=== PATIENT | female | born 1985 | race Caucasian/White ===

== ENCOUNTER → 2016-10-24 | Outpatient (CLI) | payer OTHER ==
--- NOTE | 2016-10-24 13:01 | US ---
October 24, [address] Lazaro, Thank you very much for allowing us to see your patient, Torey Noonan. As you know, she is a a 31 year-old, 2, para 1001 with a twin suspected to be dichorionic diamniotic who is here for viability and chorionicity evaluation. The is at 9w3d by LMP of 08/19/16; DELON of 05/26/17. She is a healthy woman without chronic medical problems. She has had one term that delivered vaginally without complications. ULTRASOUND LMP: 08/19/17 Gestational age by LMP: 9 weeks 3 days DELON by LMP: 05/26/17 Number of fetuses: 2 Chorionicity: Dichorionic; twin peak sign is clearly seen and the placenta for each twin is separate Amnion: Diamniotic TWIN A: Inferior CRL: 26 mm Gestational age by CRL: 9 weeks 3 day(s) Nuchal Translucency: Not applicable heart rate: 172 bpm Placenta: Posterior Yolk Sac: Present, 6.6 mm TWIN B: Superior CRL: 27 mm Gestational age by CRL: 9 weeks 4 day(s) Nuchal Translucency: Not applicable heart rate: 176 bpm Placenta: Anterior Yolk Sac: Present, 6.8 mm There is a hypoechoic area adjacent to the gestational sac for each twin which may represent a subcho rionic hematoma. Right Ovary: Is seen with a simple cyst which may be her corpus luteum. The ovary measures 5.8 x 4. 3 x 3.2 cm. The cyst measures 4.1 x 3.3 x 2.7 cm. Left ovary: Is seen with a cyst which may also be a corpus luteum. The ovary measures 3.6 x 3.3 x 1.7 cm the cyst measures 2.0 x 1.7 x 1.3 cm. IMPRESSION: 1. Dichorionic diamniotic twin dating 9 weeks 3 day(s); DELON of 05/26/17. Today's ultrasou nd is consistent with established dating. 2. Twin A has an anterior placenta 3. Twin B has a posterior placenta 4. Both the right and left ovaries have cysts which may be corpus luteum versus simple cysts RECOMMENDATIONS I had the opportunity to review today's ultrasound with your couple. Today's ultrasound confirms the viability of the twins and that they are dichorionic diamniotic twins. We reviewed the different ty pe of twin pregnancies that can occur. We discussed the average gestational age of twins in the [place] i s 35 weeks. Twins can be more complicated than teague pregnancies and certain maternal and perina gilbert risks are increased with twins. risks include but are not limited to miscarriage/still , genetic related complications for one of both babies, structure related/ defects for one or both babies, growth related concerns, labor/PPROM with the inherent risk of prematurity, o perative delivery, increased bleeding, infection and VTE risks. Surveillance is increased in twin pregnancies. Maternal risks include but are not limited to hypertensive disorders of pregna ncy and gestational diabetes. If progresses well, then delivery of dichorionic diamniotic twins is typically between 37-38 weeks. We reviewed the nutritional needs of twin including the expected weight gain between 40-50 lbs. We discussed that there is a book by Kerrie Garcia that she can consider to assist with diet and nutritional needs titled "When you are expecting twins, triplets and quadruplets." We discussed genetic aneuploidy screening options, particularly Sequential Screening since cell free DNA testing is not currently endorsed by [employer] as a first screening test. She will check to ass ure she has insurance coverage before pursuing this type of testing. In summary, I recommended: 1. Follow up between 12-13 weeks for nuchal translucency evaluation for the twins. Sequential scree deanne will be done at that time. 2. Detailed anatomy at 20 weeks. 3. Growth assessment monthly beginning at 26 weeks. 4. Routine OB care Thank you for the opportunity to participate in your patient's care. Should you have any questions o r concerns, please do not hesitate to ask. Our visit was approximately 45 minutes in length with 30 minutes spent in direct face to face consult ation discussing her care. Sincerely, Remedios Braun MD [facility] Department of Obstetrics & Gynecology [facility]
--- NOTE | 2016-10-24 17:56 | US ---
Early Obstetrical Sonogram History: 31-year-old with estimated gestational age of 9 weeks 3 days, twin , confirm dicho rionic diamniotic. Comparison: None available. Findings: Dichorionic diamniotic twin is present. The right ovary measures 3.2 x 4.3 x 5.8 cm, with a simple 2.7 x 3.3 x 4.1 cm cyst. The left ovary measures 3.6 x 1.7 x 3.3 cm with a 2 cm pro bable corpus luteum. Twin A: Position: Inferior Placenta: Posterior Average crown-rump length: 26 mm, for estimated gestational age of 9 weeks 3 days. Heart rate: 172 bpm Yolk sac: Present, 6.6 mm Twin B: Position: Superior Placenta: Anterior Average crown-rump length: 27 mm, for estimated gestational age of 9 weeks 4 days. Heart rate: 176 Yolk sac: Present, 6.8 mm Small hypoechoic areas adjacent to the gestational sac for each twin may represent tiny subchorionic hematomas. Impression: 1. Dichorionic diamniotic twin with size consistent with dates. 2. Bilateral ovarian cysts. 3. Additional findings as above. Please see separate dictation for consultation performed by Remedios Braun MD, the same day. Twins
== END ==
LOC: FIMAGING 10:33
PROVIDERS: ATTEND Obstetrics & Gynecology
DX: O30.041 Twin pregnancy, dichorionic/diamniotic, first trimester (principal); O34.81 Maternal care for other abnormalities of pelvic organs, first trimester; Z3A.09 9 weeks gestation of pregnancy

== ENCOUNTER → 2016-11-15 | Outpatient (CLI) | payer OTHER | LOC: FIMAGING 09:35 | PROVIDERS: ATTEND Obstetrics & Gynecology | DX: O30.041 Twin pregnancy, dichorionic/diamniotic, first trimester (principal); Z3A.12 12 weeks gestation of pregnancy ==

== ENCOUNTER → 2017-01-05 | Outpatient (CLI) | payer OTHER | LOC: FIMAGING 12:11 | PROVIDERS: ATTEND Obstetrics & Gynecology | DX: O30.042 Twin pregnancy, dichorionic/diamniotic, second trimester (principal); Z3A.19 19 weeks gestation of pregnancy ==

== ENCOUNTER → 2017-02-07 | Outpatient (CLI) | payer OTHER | LOC: FIMAGING 08:46 | PROVIDERS: ATTEND Obstetrics & Gynecology | DX: O30.042 Twin pregnancy, dichorionic/diamniotic, second trimester (principal); Z3A.24 24 weeks gestation of pregnancy ==

== ENCOUNTER 2017-02-20 09:52 | Observation (INO) | payer OTHER, MEDICAID ==
--- NOTE | 2017-02-20 12:51 | PDGENHP ---
History and Physical - Chief Complaint 31 y.o. female at 26 4/7 weeks w/ twins after fall - History of Present Illness 31 y.o. female presents to L&D at 26 4/7 weeks after falling down her stairs at home. Denies hitting her abdomen. Denies experiencing any vaginal bleeding or uterine cramping. Prolonged monitoring with KHB sent. History Information - Allergies/Home Medication List Allergies/Adverse Reactions: No Known Allergies Allergy (Unverified 02/20/17 11:22) I have personally reviewed and updated: family history, medical history, social history, surgical history - Past Medical History no pertinent PMH Additional medical history: hx of abnormal Pap smear - Surgical History Reports: no pertinent surgical hx - Social History Smoking Status: Never smoked Alcohol Use: None Drug Use: None Review of Systems ROS: 10pt was reviewed & negative except for what was stated in HPI & below Constitutional: Reports: no symptoms EENMT: Reports: no symptoms Cardiac: Reports: no symptoms Respiratory: Reports: no symptoms Gastrointestinal: Reports: no symptoms Genitourinary: Reports: no symptoms Muscolosketal: Reports: no symptoms Skin: Reports: no symptoms Neurological: Reports: no symptoms Hematologic/Lymphatic: Reports: no symptoms Immunologic/Allergy: Reports: no symptoms Physical Exam Constitutional: no apparent distress Eyes: PERRL Ears, Nose, Mouth, Throat: hearing normal Cardiovascular: regular rate and rhythym, no murmur, rub, or gallop Respiratory: no respiratory distress Gastrointestinal: soft, non-tender abdomen Genitourinary: no bladder fullness, no bladder tenderness Skin: warm, normal color Musculoskeletal: full muscle strength Neurologic: AAOx3 Psychiatric: interacting appropriately Assessment & Plan Assessment: 31 y.o. female at 26 4/7 weeks with twins being seen on L&D for prolonged monitoring after falling down her stairs at home. Denies hitting her abdomen. VSS- afebrile. NST- reactive x2. No presence of uterine contractions noted. No vaginal bleeding or leaking amniotic fluid. Plan: Prolonged NST. VS per protocol Check KHB. Discussed with Dr. ZHU and will not administer Rhogam today. Anticipate discharge to home if stable.
--- NOTE | 2017-02-20 12:58 | SOAPPROG ---
SOAP Progress Note Assessment/Plan: Assessment: 31 y.o. female presents at 26 4/7 weeks with twins for prolonged monitoring after falling down her stairs at home.Denies hitting her abdomen. Denies vaginal bleeding or leaking amniotic fluid. Denies uterine contractions or abdominal pain. Plan: Prolonged NST. VS per protocol. Check KHB. Anticipate discharge to home if stable. 02/20/17 12:54 Subjective: Reports feeling well with good movement. Denies vaginal bleeding, leaking amniotic fluid, uterine contractions or abdominal pain. - Time Spent With Patient Time Spent With Patient: 10 minutes - Pending Discharge Pending Discharge Within 24 Hours: Yes Pending Discharge Date: 02/20/17 Pending Discharge Time: 11:00 Physical Exam - Physical Exam General Appearance: WD/WN, alert, no apparent distress EENT: normal ENT inspection Neck: non-tender, full range of motion Respiratory: lungs clear, normal breath sounds Cardiac/Chest: regular rate, rhythm Abdomen: non-tender, soft Pelvic Exam: deferred Rectal: deferred Back: Normal inspection Skin: normal color, warm/dry Lymphatic: no adenopathy Extremities: normal range of motion, non-tender, normal inspection Neuro/Psych: alert, normal mood/affect, oriented x 3 ICD10 Worksheet Patient Problems: Problems Problem Status Onset 26 weeks gestation of Acute - ICD10 Problem Qualifiers (1) 26 weeks gestation of
== END 2017-02-20 19:13 | disposition home or self-care (01) ==
LOC: FLD 09:52
PROVIDERS: ADMIT Midwife; ATTEND Midwife
DX: O9A.212 Injury, poisoning and certain other consequences of external causes complicating pregnancy, second trimester (principal); O30.002 Twin pregnancy, unspecified number of placenta and unspecified number of amniotic sacs, second trimester; Z3A.26 26 weeks gestation of pregnancy; W10.8XXA Fall (on) (from) other stairs and steps, initial encounter; Y92.017 Garden or yard in single-family (private) house as the place of occurrence of the external cause

== ENCOUNTER 2017-03-01 14:31 | Emergency (ER) | payer OTHER, MEDICAID ==
[2017-03-01 14:53] VITALS: PULSE 85
[2017-03-01 16:29] VITALS: BP 112/75; RESP 18; TEMP 98.4; O2SAT 95
--- NOTE | 2017-03-01 16:42 | EDPHY ---
H & P Stated Complaint: Left leg swelling, told to come in by OBGYN, 27 weeks Time Seen by Provider: 03/01/17 15:47 HPI/ROS: CHIEF COMPLAINT: left foot swelling HISTORY OF PRESENT ILLNESS: 31-year-old 27 weeks with twins female presents emergency department complaining of left foot swelling that she noticed last evening while lying in bed. Patient denies pain. Patients OBGYN sent her to the emergency department to rule out a blood clot. She reports 10 days ago she fell down the stairs and was monitored by OB, she does not recall injuring her foot at this time. She denies any ankle pain. No numbness or tingling to her foot, no calf pain. No history of blood clots, no chest pain or shortness of breath. REVIEW OF SYSTEMS: A comprehensive 10 point review of systems is otherwise negative aside from elements mentioned in the history of present illness. Source: Patient Exam Limitations: No limitations - Personal History LMP (Females 10-55): Current Tetanus Diphtheria and Acellular Pertussis (TDAP): Yes - Medical/Surgical History Hx Asthma: No Hx Chronic Respiratory Disease: No Hx Diabetes: No Hx Cardiac Disease: No Hx Renal Disease: No Hx Cirrhosis: No Hx Alcoholism: No Hx HIV/AIDS: No Hx Splenectomy or Spleen Trauma: No Other PMH: Denies - Social History Smoking Status: Never smoked - Physical Exam Exam: GEN: Awake, alert, oriented, no acute distress RESP: nl resp effort MSK: Normal appearing, full range of motion of left knee and left ankle, no tenderness to palpation, 2+ pedal pulses, sensation intact to light touch, 3 cm x 3 cm area ecchymosis that appears old, is yellowish green in nature to the dorsal of left foot SKIN: No break in skin Constitutional: Initial Vital Signs Temperature (C) 36.8 C 03/01/17 14:50 Heart Rate 85 03/01/17 14:50 Respiratory Rate 16 03/01/17 14:50 Blood Pressure 110/62 03/01/17 14:50 O2 Sat (%) 98 03/01/17 14:50 O2 Delivery Mode Room Air Allergies/Adverse Reactions: No Known Allergies Allergy (Unverified 02/20/17 11:22) Home Medications: Medication Instructions Recorded NK [No Known Home Meds] 03/01/17 Medical Decision Making - Diagnostics Imaging Results: Imaging Impressions Extremity Venous Study 03/01/17 15:48 Impression: No evidence of deep vein thrombosis in the left leg. Findings and recommendations discussed with Tamara Boss NP at 1623 hour, . Final report concurs with initial preliminary interpretation. Imaging: Discussed imaging studies w/ machine scallop cutter Radiologist ED Course/Re-evaluation: 31-year-old female presents with left foot swelling she noticed last night. OBGYN sent her here for a ultrasound to rule out a blood clot. Ultrasound is negative for DVT. Patient has a small old area of ecchymosis to dorsal aspect of left foot that I think is likely from her fall down the stairs 10 days ago. She has full range of motion of this ankle and she is nontender over her ligaments. I did not order an x-ray. I have recommended ice, elevation, rest and follow up with an orthopedist for symptoms that do not return, return to the emergency department for any new symptoms, worsening symptoms or concerns Differential Diagnosis: The differential diagnosis for the patient's leg swelling included but was not limited to contusion, congestive heart failure, cor pulmonale, venous stasis, trauma, and DVT. Departure - Departure Disposition: Home, Routine, Self-Care Clinical Impression: Contusion of left foot Qualifiers: Encounter type: initial encounter Qualified Code(s): S90.32XA - Contusion of left foot, initial encounter Condition: Good Instructions: Foot Contusion (ED) Additional Instructions: Rest, ice, elevate. Follow up with orthopedist for symptoms that are not improving, return to the emergency department for any worsening symptoms, new symptoms or concerns. Referrals: Adán Tellez MD [Medical Doctor] - As per Instructions (Orthopedist on-call)
== END 2017-03-01 16:46 | disposition home or self-care (01) ==
DX: O9A.212 Injury, poisoning and certain other consequences of external causes complicating pregnancy, second trimester (principal); S90.32XA Contusion of left foot, initial encounter; Z3A.27 27 weeks gestation of pregnancy; W10.9XXA Fall (on) (from) unspecified stairs and steps, initial encounter

== ENCOUNTER → 2017-03-02 | Outpatient (CLI) | payer OTHER, MEDICAID | LOC: FIMAGING 12:07 | PROVIDERS: ATTEND Obstetrics & Gynecology | DX: O30.042 Twin pregnancy, dichorionic/diamniotic, second trimester (principal); Z3A.27 27 weeks gestation of pregnancy ==